=== PATIENT | female | born 1955 | race Caucasian/White ===

== ENCOUNTER 2021-05-12 17:37 | Emergency (ER) | payer MEDICARE ==
[2021-05-12] MEDS ORDERED: Fluorescein Opthalmic Strip ONE (17:53)
[2021-05-12] MEDS ORDERED: Tetracaine 0.5% PF 4 ML BOT ONE (17:53)
== END 2021-05-12 19:10 | disposition home or self-care (01) ==
LOC: BURERS 17:37
DX: T51.2X1A Toxic effect of 2-Propanol, accidental (unintentional), initial encounter (principal); T26.62XA Corrosion of cornea and conjunctival sac, left eye, initial encounter; E78.5 Hyperlipidemia, unspecified; Z79.899 Other long term (current) drug therapy
CPT/HCPCS: 99283